=== PATIENT | female | born 1965 | race Caucasian/White ===

== ENCOUNTER → 2022-04-01 | Outpatient (CLI) | payer BC ==
[~2022-04-01] MED LIST: AMLO10 PO; CENTRUM SILVER1 EAC2 PO; LOSA25 PO; METO25 PO
== END ==
LOC: LAB 16:30 → LAB SHORT 16:30
DX: R30.0 Dysuria (principal)
CPT/HCPCS: 87086

== ENCOUNTER 2022-10-23 08:48 | Emergency (ER) | payer BC ==
[~2022-10-23] VITALS: Ht 167.6 cm; Wt 59.0 kg
[2022-10-23] MEDS ORDERED: MONTELUKAST 10 MG (10:09)
[2022-10-23] MEDS ORDERED: OMEP20ER (10:09)
[2022-10-23] MEDS ORDERED: Ventolin/Prove6.7 GM (10:09)
[2022-10-23] MEDS ORDERED: QVAR REDIHALE10.6 G2 (10:10)
[2022-10-23] MEDS ORDERED: ASPI81CH PO (10:10)
[2022-10-23 10:24] LABS: BASOPHILS ABSOLUTE AUTO 0.03 K/mm3 (0.00-0.23); BASOPHILS PERCENT AUTO 1 % (0-2); EOSINOPHILS ABSOLUTE AUTO 0.05 K/mm3 (0.00-0.68); EOSINOPHILS PERCENT AUTO 1 % (0-6); Hematocrit 38.7 % (33.0-51.0); Hemoglobin 13.5 g/dL (11.5-16.0); IMMATURE GRAN ABSOLUTE AUTO 0.02 K/mm3 (0.00-0.10); IMMATURE GRAN PERCENT AUTO 0 % (0-1); LYMPHOCYTES ABSOLUTE AUTO 1.48 K/mm3 (0.84-5.20); LYMPHOCYTES PERCENT AUTO 23 % (21-46); MONOCYTES ABSOLUTE AUTO 0.44 K/mm3 (0.16-1.47); MONOCYTES PERCENT AUTO 7 % (4-13); Mean Corpuscular HGB 29.9 pg (26.0-34.0); Mean Corpuscular HGB Conc 34.9 g/dL (31.5-36.5); Mean Corpuscular Volume 86 fL (80-100); Mean Platelet Volume 9.9 fL (9.1-12.4); NEUTROPHILS PERCENT AUTO 69 % (41-73); Platelet Count 300 K/mm3 (150-400); RDW Coefficient Variation 12.1 % (11.7-14.2); RDW Standard Deviation 38.3 fL (35.1-46.3); Red Blood Cell Count 4.51 M/mm3 (3.80-5.20); White Blood Cell Count 6.52 K/mm3 (4.00-11.30)
[2022-10-23 10:55] LABS: Albumin/Globulin Ratio 1.2 (0.8-1.8); Bilirubin, Total 0.6 mg/dL (0.1-1.0); Bun/Creatinine Ratio 18.1 (12.0-20.0); Calcium, Blood 8.9 mg/dL (8.5-10.1); Creatinine, Blood 0.55 mg/dL (0.40-1.00); Globulin, Blood 3.3 g/dL (2.2-4.0); Potassium, Blood 3.6 mmol/L (3.5-5.5); Total Protein, Blood 7.3 g/dL (6.4-8.2)
== END 2022-10-23 11:31 | disposition home or self-care (01) ==
LOC: ER 08:48
PROVIDERS: Physician Assistant
DX: R20.2 Paresthesia of skin (principal); I10 Essential (primary) hypertension; Z88.2 Allergy status to sulfonamides; Z79.899 Other long term (current) drug therapy
CPT/HCPCS: 36415; 71045; 80053; 84484; 85025; 93005; 93010

== ENCOUNTER → 2023-01-24 | Outpatient (CLI) | payer BC, OTHER ==
[~2023-01-24] MED LIST changes: +AMLODIPINE BESY10 MG PO; +ASPI81CH PO; +METO50 PO; +MONTELUKAST 10 MG; +MULVITA; +OMEP20ER; +QVAR REDIHALE10.6 G2; +Ventolin/Prove6.7 GM
== END | disposition home or self-care (01) ==
LOC: LAB 15:15 → LAB SHORT 15:15
DX: R30.0 Dysuria (principal)
CPT/HCPCS: 87077; 87086; 87186

== ENCOUNTER 2023-04-03 06:28 | Inpatient (IN) | payer BC ==
[2023-04-03] VITALS (13 sets, daily range): BP systolic 129–150; BP diastolic 73–94
[~2023-04-03] VITALS: Ht 167.6 cm; Wt 63.5 kg
[~2023-04-03 06:28] MED LIST changes: +ALBU90OI PO; +BENADRYL25 MG PO; +MELATONIN5 M1 PO; +METO50ER PO; +OMEP20ER PO; +TURMERIC500 M2 PO
[2023-04-03] MEDS ORDERED: MONT10T PO (06:45)
--- NOTE | 2023-04-03 06:45 | NUR ---
Ambulatory in Day Surgery History, Chart, Medications and Allergies reviewed before start of procedure.Lungs clear T/O to Auscultation. Patient confirms NPO status and agrees with scheduled surgery. Patient reports completing Chlorhexadine shower X2 prior to admission to hospital.Surgical site prepped with 2% Chlorhexidine cloth wipe. Patient States Post-Procedure ride home has been arranged.
[2023-04-03] MEDS ORDERED: QVAR REDIHALE10.6 G2 INH (06:46)
[2023-04-03] MEDS ORDERED: ACET500 (06:48)
--- NOTE | 2023-04-03 09:45 | NUR ---
0994 ARRIVED TO ROOM FROM PACU. ABD LAP SITES WITH GAUZE AND TRANSPARENT DRESSING DRY AND INTACT X3. DENIES NAUSEA. PT REPORTS ABD PAIN 9/10 MEDICATED FOR PAIN
[2023-04-03] MEDS ORDERED: Norco 5-325 Ta1 EACH PO (14:21)
--- NOTE | 2023-04-03 15:51 | NUR ---
AMBULATED IN [facility] WITH STANDBY ASSIST. PT REPORTS FEELING VERY BLOATED AND THAT" STOMACH IS SWOLLEN." ABD NOTED WITH MODERATE DISTENSION. ENCOURAGED AMBULATION
--- NOTE | 2023-04-03 19:27 | NUR ---
1900 discharged to home with . pt states abd feels much less full and distended ad that she is belching. cornelius small amounts of regular diet. voiding clear yellow urine. ambulating independently in room pt reports good paincontrol
== END 2023-04-03 19:00 | disposition home or self-care (01) | DRG 331 ==
LOC: SURS 06:28 → PRE IP 08:00 → SURS 08:46
PROVIDERS: ADMIT Surgery
PROC: 0DBH4ZZ Excision of Cecum, Percutaneous Endoscopic Approach (ICD-10-PCS; 2023-04-03)
PROC: 0DTJ4ZZ Resection of Appendix, Percutaneous Endoscopic Approach (ICD-10-PCS; principal; 2023-04-03 08:00)
DX: D12.1 Benign neoplasm of appendix (principal); F41.9 Anxiety disorder, unspecified; D12.0 Benign neoplasm of cecum; F32.A Depression, unspecified; I10 Essential (primary) hypertension; K64.8 Other hemorrhoids; Z98.890 Other specified postprocedural states; Z79.899 Other long term (current) drug therapy; Z79.51 Long term (current) use of inhaled steroids; Z88.2 Allergy status to sulfonamides; Z88.8 Allergy status to other drugs, medicaments and biological substances; Z88.5 Allergy status to narcotic agent; Z87.891 Personal history of nicotine dependence
CPT/HCPCS: A9270; J0295; J3010; J7120

== ENCOUNTER → 2023-05-09 | Outpatient (CLI) | payer BC, OTHER ==
[~2023-05-09] MED LIST changes: +ACET500; +MONT10T PO; +Norco 5-325 Ta1 EACH PO; +QVAR REDIHALE10.6 G2 INH
== END | disposition home or self-care (01) ==
LOC: LAB 09:40 → LAB SHORT 09:40
DX: N39.0 Urinary tract infection, site not specified (principal)
CPT/HCPCS: 87086

== ENCOUNTER → 2023-07-29 | Outpatient (CLI) | payer BC | END | disposition home or self-care (01) | LOC: LAB SHORT 16:20 → LAB 16:20 | DX: N39.0 Urinary tract infection, site not specified (principal) | CPT/HCPCS: 87077; 87086; 87186 ==

== ENCOUNTER → 2024-09-06 | Outpatient (CLI) | payer BC, OTHER ==
[~2024-09-06] MED LIST changes: +ALBU90OI; +ASCO500; +Prinivil10 MG; +QVAR REDIHALE10.6 G3; +URITRAX47 GM
== END | disposition home or self-care (01) ==
LOC: LAB 18:42 → LAB SHORT 18:42
DX: N39.0 Urinary tract infection, site not specified (principal)
CPT/HCPCS: 87086

== ENCOUNTER → 2025-10-07 | Outpatient (CLI) | payer BC | END | disposition home or self-care (01) | LOC: LAB 12:41 → LAB SHORT 12:41 | DX: R30.0 Dysuria (principal) | CPT/HCPCS: 87086 ==